=== PATIENT | male | born 1965 ===

== ENCOUNTER 2017-04-20 18:14 | Emergency (ER) | payer SELFPAY ==
[2017-04-20] MEDS ORDERED: Lorazepam 1 MG TAB ONE (19:47)
== END 2017-04-20 20:22 | disposition home or self-care (01) ==
LOC: MADERS 18:14
DX: I10 Essential (primary) hypertension (principal); F41.9 Anxiety disorder, unspecified; Z79.899 Other long term (current) drug therapy
CPT/HCPCS: 99283